=== PATIENT | male | born 1995 ===

== ENCOUNTER 2021-04-11 11:56 | Emergency (ER) | payer SELFPAY ==
[2021-04-11 13:37] VITALS: BP 112/70
== END 2021-04-11 13:41 | disposition home or self-care (01) ==
LOC: ED 11:56
DX: T15.01XA Foreign body in cornea, right eye, initial encounter (principal); F17.210 Nicotine dependence, cigarettes, uncomplicated
CPT/HCPCS: J1885

== ENCOUNTER 2021-12-04 06:30 | Emergency (ER) | payer SELFPAY ==
[~2021-12-04] VITALS: Ht 170.2 cm; Wt 68.2 kg
[2021-12-04] MEDS ORDERED: MULTIPLE VITAMI1 TA5 PO (06:58)
[2021-12-04 07:43] LABS: BASO # 0.02 K/mm3 (0.02-0.10); EOS # 0.02 K/mm3 (0.04-0.40); EOS % 0.2 % (0.0-4.0); HEMATOCRIT 49.8 % (42.0-52.0); HEMOGLOBIN 17.1 g/dL (13.5-18.0); LYMPH# 1.67 K/mm3 (1.50-4.00); MEAN CELL VOLUME 87 fl (78-100); MEAN CORPUSCULAR HEMOGLOBIN 30 pg (27-31); MEAN CORPUSCULAR HGB CONC 34 g/dL (33-37); MEAN PLATELET VOLUME 9.1 fl (7.4-10.4); NEU # 6.05 K/mm3 (1.40-6.50); PLATELET COUNT 303 K/mm3 (130-400); RED CELL DISTRIBUTION WIDTH 12.6 % (11.5-14.5); WHITE BLOOD COUNT 8.4 K/mm3 (4.8-10.8)
[2021-12-04 08:16] LABS: POTASSIUM 3.5 mmol/L (3.5-5.1); SODIUM 138 mmol/L (136-145)
[2021-12-04 08:17] LABS: CALCIUM 10.1 mg/dL (8.3-10.5)
[2021-12-04 08:19] LABS: CARBON DIOXIDE 25 mmol/L (22-29)
[2021-12-04 08:20] LABS: TOTAL BILIRUBIN 0.6 mg/dL (0.2-1.2)
[2021-12-04 08:23] LABS: AST-SGOT 23 U/L (5-34)
[2021-12-04 08:25] LABS: ALT/SGPT 44 U/L (0-55)
[2021-12-04 08:28] LABS: TROPONIN-I < 0.030 ng/mL (<0.030)
[2021-12-04 08:31] LABS: D-DIMER 0.38 mg/L FEU (0.15-0.50)
[2021-12-04 08:33] LABS: GLUCOSE 102 mg/dL (75-110); TOTAL PROTEIN 8.3 g/dL (6.4-8.3)
[2021-12-04] MEDS ORDERED: PROAIR HFA0.09 MG/AC IH (09:08)
[2021-12-04 09:28] VITALS: BP 107/44
== END 2021-12-04 09:20 | disposition home or self-care (01) ==
LOC: ED 06:30
PROVIDERS: Family Medicine
DX: R06.00 Dyspnea, unspecified (principal); R00.0 Tachycardia, unspecified; Z20.822 Contact with and (suspected) exposure to COVID-19